=== PATIENT | female | born 1945 | race Caucasian/White ===

== ENCOUNTER 2016-04-22 10:21 | Inpatient (IN) | payer OTHER ==
[2016-04-22] VITALS (12 sets, daily range): BP systolic 140–161; BP diastolic 67–83
[~2016-04-22] VITALS: Ht 154.9 cm; Wt 57.2 kg
[~2016-04-22 10:21] MED LIST: CYCLOBENZAPRINE10 MG PO; DILAUDID4 MG; DILAUDID4 MG PO; EXALGO8 MG; EXALGO8 MG PO; EXCEDRIN MIGRA1 EAC3 PO; FIORICET,ESG1 TABLET PO; GABAPENTIN600 MG; HYDROMORPHONE HC4 MG PO; LISINOPRIL40 MG PO; LOW DOSE ASPIRI81 M2 PO; OMEPRAZOLE20 MG PO; PROMETHAZINE HC25 M1 PO; TOPROL XL100 MG PO; VENLAFAXINE H37.5 M1 PO; ZOLOFT100 MG PO
[2016-04-22 14:41] LABS: HEMATOCRIT 37.1 % (36.0-46.0); MCH 31.8 PG (29.0-34.0); MCHC 32.6 G/DL (30.0-36.0); MCV 97.6 FL (83-99); MEAN PLAT.VOLUME 9.3 uM^3 (9.5-12.4); PLATELET COUNT 204 K/uL (156-360); RBC DIS.WIDTH-CV 12.9 % (11.8-14.6); WHITE BLOOD COUNT 6.3 K/uL (4.1-10.2)
[2016-04-22 14:51] LABS: CHLORIDE 108 mEq/L (99-109); POTASSIUM 3.9 mEq/L (3.7-5.4); SODIUM 143 mEq/L (136-147)
[2016-04-22 14:52] LABS: GLUCOSE 93 mg/dL (70-99)
[2016-04-22 14:54] LABS: ANION GAP 8 MEQ/L (2-14)
[2016-04-22 14:56] LABS: GFR ESTIMATE (CALCULATED) > 59 mL/min/
[2016-04-22 14:57] LABS: UREA NITROGEN (BUN) 14 mg/dL (9-23)
[2016-04-22 15:02] LABS: TROP-I INTERPRETATION NEGATIVE; TROPONIN-I 0.01 ng/mL (0.0-0.30)
[2016-04-22] MEDS ORDERED: ASPIR 8181 M1 PO (16:40)
[2016-04-22 20:56] LABS: METH RESISTANT S AUREUS PCR NEGATIVE (NEGATIVE)
[2016-04-22 21:01] LABS: PROBE CHECK PASS; SPECIMEN PROCESSING CONTROL PASS
== END 2016-04-22 22:45 | disposition short-term general hospital (02) | DRG 287 ==
LOC: NUC 10:21 → EME 10:21 → OPR 10:21 → EDSTATUS 10:30 → NUC 10:30 → EME 16:51 → SDC 16:51 → 4WEST 19:18
PROVIDERS: Internal Medicine Interventional Cardiology
DX: I25.110 Atherosclerotic heart disease of native coronary artery with unstable angina pectoris (principal); I73.9 Peripheral vascular disease, unspecified; I10 Essential (primary) hypertension; E78.5 Hyperlipidemia, unspecified; K21.9 Gastro-esophageal reflux disease without esophagitis; F32.9 Major depressive disorder, single episode, unspecified; G43.909 Migraine, unspecified, not intractable, without status migrainosus; G89.29 Other chronic pain; Z88.0 Allergy status to penicillin; Z88.5 Allergy status to narcotic agent; Z23 Encounter for immunization
CPT/HCPCS: 71020; 78452; 80048; 84484; 85027; 85347; 87641; 93005; 93017; 99281; 99285; A9500; C1769; C1887; J1200; J1644; J2250; J3010; J7050

== ENCOUNTER 2016-05-11 10:52 | Inpatient (IN) | payer OTHER ==
[~2016-05-11] VITALS: Ht 154.9 cm; Wt 57.6 kg
[~2016-05-11 10:52] MED LIST changes: +ASPIR 8181 M1 PO
[2016-05-11 11:36] LABS: BASOPHIL COUNT 0.1 K/uL (0-0.1); EOSINOPHIL (%) 2.6 % (0-5); EOSINOPHIL COUNT 0.3 K/uL (0-0.3); HEMATOCRIT 26.7 % (36.0-46.0); IMMATURE GRANULOCYTE (%) 0.4 % (0.0-0.7); IMMATURE GRANULOCYTE COUNT 0.4 K/uL; LYMPHOCYTE COUNT 0.7 K/uL (1.0-2.8); MCH 30.9 PG (29.0-34.0); MCHC 31.1 G/DL (30.0-36.0); MCV 99.3 FL (83-99); MEAN PLAT.VOLUME 9.5 uM^3 (9.5-12.4); MONOCYTE (%) 9.4 % (3-12); NEUTROPHIL COUNT 8.8 K/uL (1.8-6.4); PLATELET COUNT 367 K/uL (156-360); RBC DIS.WIDTH-CV 14.9 % (11.8-14.6); RBC DIS.WIDTH-SD 49.8 % (39-53); RED BLOOD COUNT 2.69 M/uL (3.80-5.20); WHITE BLOOD COUNT 10.9 K/uL (4.1-10.2)
[2016-05-11 11:43] LABS: CHLORIDE 103 mEq/L (99-109); POTASSIUM 4.9 mEq/L (3.7-5.4); SODIUM 139 mEq/L (136-147)
[2016-05-11 11:45] LABS: GLUCOSE 115 mg/dL (70-99)
[2016-05-11 11:47] LABS: ANION GAP 10 MEQ/L (2-14); TOTAL BILIRUBIN 0.3 mg/dL (0.0-1.0)
[2016-05-11 11:52] LABS: D-DIMER ELISA > 4.00 mg/L FEU (< 0.57)
[2016-05-11 11:52] LABS: ALKALINE PHOSPHATASE 107 IU/L (3-129); GFR ESTIMATE (CALCULATED) > 59 mL/min/; UREA NITROGEN (BUN) 21 mg/dL (9-23)
[2016-05-11 11:53] LABS: TROP-I INTERPRETATION NEGATIVE; TROPONIN-I 0.05 ng/mL (0.0-0.30)
[2016-05-11 14:36] LABS: BASE EXCESS 4.6 mEq/L (-3 to +3); BICARBONATE 30.6 mEq/L (22-26); CARBOXY HGB 1.5 % (0-5); METHEMOGLOBIN 0.7 % (0-1.5); PCO2 53 mm Hg (35-45); PO2 52 mm Hg (80-100); pH 7.37 (7.35-7.45)
[2016-05-11 14:37] LABS: COMMENTS - BLOOD GASES +C; FI02 21 %; SITE LR +A; TOTAL RESP RATE 24 resp/min
[2016-05-11] MEDS ORDERED: ATORVASTATIN CA10 MG PO (15:50)
[2016-05-11] MEDS ORDERED: NITROSTAT0.4 MG SL (15:50)
[2016-05-11] MEDS ORDERED: PLAVIX75 MG PO (15:51)
[2016-05-11 16:38] LABS: INTER. NORMALIZED RATIO 1.3; PROTHROMBIN TIME 12.8 (9.2-11.2); PTT 29.9 (25-32)
[2016-05-11 17:30] VITALS: BP 113/84
== END 2016-05-11 16:15 | disposition short-term general hospital (02) | DRG 206 ==
LOC: EME 10:52 → EDOF 15:09
PROVIDERS: Emergency Medicine; Family Medicine
DX: J95.89 Other postprocedural complications and disorders of respiratory system, not elsewhere classified (principal); J90 Pleural effusion, not elsewhere classified; J98.19 Other pulmonary collapse; I25.10 Atherosclerotic heart disease of native coronary artery without angina pectoris; I48.91 Unspecified atrial fibrillation; G89.29 Other chronic pain; Z95.1 Presence of aortocoronary bypass graft; R09.02 Hypoxemia; K21.9 Gastro-esophageal reflux disease without esophagitis; I10 Essential (primary) hypertension; G43.909 Migraine, unspecified, not intractable, without status migrainosus; E78.00 Pure hypercholesterolemia, unspecified; E78.5 Hyperlipidemia, unspecified; F32.9 Major depressive disorder, single episode, unspecified; F41.9 Anxiety disorder, unspecified
CPT/HCPCS: 36600; 71010; 71275; 80053; 82803; 83880; 84484; 85025; 85379; 85610; 85730; 86850; 86900; 86901; 93005; 99281; 99285

== ENCOUNTER 2016-05-18 13:30 | Inpatient (IN) | payer OTHER ==
[~2016-05-18] VITALS: Ht 154.9 cm; Wt 60.5 kg
[~2016-05-18 13:30] MED LIST changes: +ATORVASTATIN CA10 MG PO; +NITROSTAT0.4 MG SL; +PLAVIX75 MG PO
[2016-05-18 15:16] LABS: HEMATOCRIT 31.8 % (36.0-46.0); MCHC 30.5 G/DL (30.0-36.0); MCV 98.5 FL (83-99); MEAN PLAT.VOLUME 9.4 uM^3 (9.5-12.4); PLATELET COUNT 368 K/uL (156-360); RBC DIS.WIDTH-CV 15.4 % (11.8-14.6); RBC DIS.WIDTH-SD 51.7 % (39-53); RED BLOOD COUNT 3.23 M/uL (3.80-5.20); WHITE BLOOD COUNT 8.8 K/uL (4.1-10.2)
[2016-05-18 15:24] LABS: CHLORIDE 101 mEq/L (99-109); POTASSIUM 4.5 mEq/L (3.7-5.4); SODIUM 140 mEq/L (136-147)
[2016-05-18 15:25] LABS: GLUCOSE 97 mg/dL (70-99)
[2016-05-18 15:27] LABS: ANION GAP 9 MEQ/L (2-14)
[2016-05-18 15:29] LABS: GFR ESTIMATE (CALCULATED) > 59 mL/min/
[2016-05-18 15:30] LABS: UREA NITROGEN (BUN) 9 mg/dL (9-23)
[2016-05-18 17:30] LABS: TROP-I INTERPRETATION NEGATIVE; TROPONIN-I 0.02 ng/mL (0.0-0.30)
[2016-05-18] MEDS ORDERED: LOPRESSOR50 MG PO (17:55)
[2016-05-18 22:45] VITALS: BP 137/70
[2016-05-18 22:53] VITALS: BP 137/70
[2016-05-19 01:58] LABS: INTER. NORMALIZED RATIO 1.3; PTT 29.5 (25-32)
[2016-05-19 03:00] VITALS: BP 132/63
[2016-05-19 07:55] VITALS: BP 131/60
[2016-05-19 08:33] LABS: HEMATOCRIT 29.4 % (36.0-46.0); MCH 28.8 PG (29.0-34.0); MCHC 29.9 G/DL (30.0-36.0); MCV 96.1 FL (83-99); MEAN PLAT.VOLUME 9.6 uM^3 (9.5-12.4); PLATELET COUNT 327 K/uL (156-360); RBC DIS.WIDTH-CV 15.7 % (11.8-14.6); RED BLOOD COUNT 3.06 M/uL (3.80-5.20); WHITE BLOOD COUNT 7.2 K/uL (4.1-10.2)
[2016-05-19 08:55] LABS: ANION GAP 9 MEQ/L (2-14); CHLORIDE 102 MEQ/L (99-109); GFR ESTIMATE (CALCULATED) > 59 mL/min/; GLUCOSE 102 mg/dL (70-99); POTASSIUM 4.3 MEQ/L (3.7-5.4); SAMPLE HEMOLYSIS CHECK 0; SAMPLE ICTERIC CHECK 0; SAMPLE LIPEMIA CHECK 0; SODIUM 140 MEQ/L (136-147); UREA NITROGEN (BUN) 10 mg/dL (9-23)
[2016-05-19 13:47] VITALS: BP 116/58
[2016-05-19 16:11] VITALS: BP 141/66
[2016-05-19 20:47] VITALS: BP 141/65
[2016-05-19 23:38] VITALS: BP 137/70
[2016-05-20 03:39] VITALS: BP 148/72
[2016-05-20 08:34] VITALS: BP 155/71
[2016-05-20 12:14] VITALS: BP 145/67
[2016-05-20 15:56] VITALS: BP 131/60
[2016-05-20 19:35] VITALS: BP 136/69
[2016-05-21 00:16] VITALS: BP 158/74
[2016-05-21 03:02] LABS: BASOPHIL COUNT 0.1 K/uL (0-0.1); EOSINOPHIL (%) 6.6 % (0-5); EOSINOPHIL COUNT 0.6 K/uL (0-0.3); HEMATOCRIT 30.7 % (36.0-46.0); IMMATURE GRANULOCYTE (%) 0.9 % (0.0-0.7); IMMATURE GRANULOCYTE COUNT 0.1 K/uL; INSTRUMENT ABS NEUTROPHIL CT 5.6 K/uL; LYMPHOCYTE COUNT 2.2 K/uL (1.0-2.8); MCH 29.5 PG (29.0-34.0); MCHC 30.3 G/DL (30.0-36.0); MCV 97.5 FL (83-99); MEAN PLAT.VOLUME 9.6 uM^3 (9.5-12.4); MONOCYTE (%) 7.5 % (3-12); MONOCYTE COUNT 0.7 K/uL (0-0.8); NEUTROPHIL (%) 60.5 % (45-76); NEUTROPHIL COUNT 5.6 K/uL (1.8-6.4); NRBC (%) 0.2 /100 WBC (0-0); PLATELET COUNT 340 K/uL (156-360); RBC DIS.WIDTH-CV 15.6 % (11.8-14.6); RBC DIS.WIDTH-SD 55.6 % (39-53); RED BLOOD COUNT 3.15 M/uL (3.80-5.20); WHITE BLOOD COUNT 9.2 K/uL (4.1-10.2)
[2016-05-21 03:13] VITALS: BP 183/80
[2016-05-21 03:19] LABS: CHLORIDE 107 mEq/L (99-109)
[2016-05-21 03:20] LABS: POTASSIUM 4.1 mEq/L (3.7-5.4); SODIUM 143 mEq/L (136-147)
[2016-05-21 03:21] LABS: GLUCOSE 105 mg/dL (70-99)
[2016-05-21 03:23] LABS: ANION GAP 10 MEQ/L (2-14)
[2016-05-21 03:25] LABS: GFR ESTIMATE (CALCULATED) > 59 mL/min/
[2016-05-21 03:26] LABS: UREA NITROGEN (BUN) 13 mg/dL (9-23)
[2016-05-21 07:45] VITALS: BP 160/67
[2016-05-21 12:47] VITALS: BP 137/61
[2016-05-21 16:09] VITALS: BP 146/64
== END 2016-05-21 18:00 | disposition home health service (06) | DRG 206 ==
LOC: EME 13:30 → EDOF 21:10 → 4EAST 21:10
PROVIDERS: Family Medicine Sports Medicine; Internal Medicine Cardiovascular Disease
DX: J95.89 Other postprocedural complications and disorders of respiratory system, not elsewhere classified (principal); J91.8 Pleural effusion in other conditions classified elsewhere; I48.91 Unspecified atrial fibrillation; J98.6 Disorders of diaphragm; D64.9 Anemia, unspecified; E78.5 Hyperlipidemia, unspecified; G43.909 Migraine, unspecified, not intractable, without status migrainosus; I10 Essential (primary) hypertension; Y83.2 Surgical operation with anastomosis, bypass or graft as the cause of abnormal reaction of the patient, or of later complication, without mention of misadventure at the time of the procedure; I25.10 Atherosclerotic heart disease of native coronary artery without angina pectoris; K21.9 Gastro-esophageal reflux disease without esophagitis; Z91.19 Patient's noncompliance with other medical treatment and regimen; Z95.5 Presence of coronary angioplasty implant and graft; F41.9 Anxiety disorder, unspecified
CPT/HCPCS: 71020; 76000; 80048; 84484; 85025; 85027; 85610; 85730; 93005; 99281; 99285

== ENCOUNTER → 2016-06-08 | Outpatient (CLI) | payer OTHER ==
[~2016-06-08] MED LIST changes: +LOPRESSOR50 MG PO
== END | disposition home or self-care (01) ==
LOC: EDSTATUS 06-07 09:00 → RAD 06-07 09:00
DX: J90 Pleural effusion, not elsewhere classified (principal); Z53.09 Procedure and treatment not carried out because of other contraindication
CPT/HCPCS: 71250

== ENCOUNTER 2016-11-10 20:05 | Inpatient (IN) | payer OTHER ==
[~2016-11-10] VITALS: Ht 154.9 cm; Wt 52.6 kg
[2016-11-10 20:59] LABS: EOSINOPHIL (%) 0 % (0-5); HEMATOCRIT 40.4 % (36.0-46.0); IMMATURE GRANULOCYTE (%) 0.6 % (0.0-0.7); IMMATURE GRANULOCYTE COUNT 0.1 K/uL; INSTRUMENT ABS NEUTROPHIL CT 16.7 K/uL; LYMPHOCYTE COUNT 1.4 K/uL (1.0-2.8); MCH 29.6 PG (29.0-34.0); MCHC 32.4 G/DL (30.0-36.0); MCV 91.4 FL (83-99); MEAN PLAT.VOLUME 10.1 uM^3 (9.5-12.4); MONOCYTE (%) 3.5 % (3-12); MONOCYTE COUNT 0.7 K/uL (0-0.8); NEUTROPHIL (%) 88.2 % (45-76); NEUTROPHIL COUNT 16.7 K/uL (1.8-6.4); PLATELET COUNT 310 K/uL (156-360); RBC DIS.WIDTH-SD 53.6 % (39-53); RED BLOOD COUNT 4.42 M/uL (3.80-5.20)
[2016-11-10 21:06] LABS: CHLORIDE 105 mEq/L (99-109); POTASSIUM 3.1 mEq/L (3.7-5.4); SODIUM 144 mEq/L (136-147)
[2016-11-10 21:09] LABS: GLUCOSE 265 mg/dL (70-99)
[2016-11-10 21:10] LABS: ANION GAP 20 MEQ/L (2-14); TOTAL BILIRUBIN 1.1 mg/dL (0.0-1.0)
[2016-11-10 21:12] LABS: ALKALINE PHOSPHATASE 117 IU/L (3-129); GFR ESTIMATE (CALCULATED) > 59 mL/min/
[2016-11-10 21:13] LABS: UREA NITROGEN (BUN) 14 mg/dL (9-23)
[2016-11-10 21:16] LABS: LIPASE 10 U/L (1.0-51.0)
[2016-11-10 21:49] LABS: ADD MIUA? YES; BILIRUBIN NEGATIVE; BLOOD NEGATIVE; COLOR YELLOW ((YELLOW)); GLUCOSE (STRIP) >=500; KETONES 80; LEUKOCYTES LARGE; NITRITE NEGATIVE; PROTEIN (STRIP) NEGATIVE; SPECIFIC GRAVITY 1.012 (1.000-1.030); UROBILINOGEN 0.2 MG/DL (0.2-1.0)
[2016-11-10 21:53] LABS: BACTERIA RARE /HPF; EPITHELIAL CELLS RARE /HPF; HYALINE CASTS 0-5 /LPF; MUCUS TRACE /LPF; RED BLOOD CELLS 0-5 /HPF (0-5); UCUL ADDED? YES; WHITE BLOOD CELLS 15-20 /HPF (0-5)
[2016-11-10] MEDS ORDERED: MORPHINE SULFAT15 M1 PO (23:27)
[2016-11-11 03:08] VITALS: BP 174/84
[2016-11-11 05:48] LABS: BASOPHIL COUNT 0.1 K/uL (0-0.1); EOSINOPHIL (%) 0 % (0-5); HEMATOCRIT 47.8 % (36.0-46.0); IMMATURE GRANULOCYTE (%) 0.9 % (0.0-0.7); IMMATURE GRANULOCYTE COUNT 0.2 K/uL; INSTRUMENT ABS NEUTROPHIL CT 20.6 K/uL; MCHC 31.2 G/DL (30.0-36.0); MEAN PLAT.VOLUME 9.5 uM^3 (9.5-12.4); MONOCYTE (%) 5.2 % (3-12); MONOCYTE COUNT 1.3 K/uL (0-0.8); NEUTROPHIL (%) 85.6 % (45-76); NEUTROPHIL COUNT 20.6 K/uL (1.8-6.4); PLATELET COUNT 367 K/uL (156-360); RBC DIS.WIDTH-CV 16.5 % (11.8-14.6); RBC DIS.WIDTH-SD 57.1 % (39-53); RED BLOOD COUNT 5.14 M/uL (3.80-5.20)
[2016-11-11 06:06] LABS: ANION GAP 15 MEQ/L (2-14); CHLORIDE 108 MEQ/L (99-109); SAMPLE HEMOLYSIS CHECK 0; SAMPLE ICTERIC CHECK 0; SAMPLE LIPEMIA CHECK 0; SODIUM 142 MEQ/L (136-147)
[2016-11-11 06:08] LABS: POTASSIUM 4.1 MEQ/L (3.7-5.4)
[2016-11-11 06:12] LABS: GFR ESTIMATE (CALCULATED) > 59 mL/min/; GLUCOSE 215 mg/dL (70-99); UREA NITROGEN (BUN) 14 mg/dL (9-23)
[2016-11-11 06:34] LABS: POINT-OF-CARE METER ID UU14117124
[2016-11-11 07:32] VITALS: BP 136/70
[2016-11-11 11:02] VITALS: BP 128/60
[2016-11-11 11:38] LABS: POINT-OF-CARE METER ID UU14188577
[2016-11-11 19:20] VITALS: BP 98/49
[2016-11-11 23:00] VITALS: BP 99/52
[2016-11-12 03:15] VITALS: BP 116/50
[2016-11-12 07:34] LABS: EOSINOPHIL (%) 0 % (0-5); IMMATURE GRANULOCYTE (%) 0.6 % (0.0-0.7); IMMATURE GRANULOCYTE COUNT 0.1 K/uL; INSTRUMENT ABS NEUTROPHIL CT 10.5 K/uL; LYMPHOCYTE COUNT 1.4 K/uL (1.0-2.8); MCH 30.5 PG (29.0-34.0); MCHC 31.3 G/DL (30.0-36.0); MONOCYTE (%) 8.8 % (3-12); MONOCYTE COUNT 1.2 K/uL (0-0.8); NEUTROPHIL COUNT 10.5 K/uL (1.8-6.4); RBC DIS.WIDTH-CV 17.7 % (11.8-14.6); RBC DIS.WIDTH-SD 63.7 % (39-53); WHITE BLOOD COUNT 13.2 K/uL (4.1-10.2)
[2016-11-12 07:38] LABS: MCV 97.5 FL (83-99); RED BLOOD COUNT 3.18 M/uL (3.80-5.20)
[2016-11-12 07:45] LABS: ALKALINE PHOSPHATASE 57 IU/L (3-129); ANION GAP 9 MEQ/L (2-14); CHLORIDE 113 MEQ/L (99-109); GFR ESTIMATE (CALCULATED) 26 mL/min/; GLUCOSE 111 mg/dL (70-99); POTASSIUM 4.2 MEQ/L (3.7-5.4); SAMPLE HEMOLYSIS CHECK 0; SAMPLE ICTERIC CHECK 0; SAMPLE LIPEMIA CHECK 0; SODIUM 145 MEQ/L (136-147); TOTAL BILIRUBIN 0.2 MG/DL (0.0-1.0); UREA NITROGEN (BUN) 36 mg/dL (9-23)
[2016-11-12 07:48] LABS: POINT-OF-CARE METER ID UU13113698
[2016-11-12 07:59] LABS: MEAN PLAT.VOLUME 10.2 uM^3 (9.5-12.4); PLAT.SUFFICIENCY ADEQUATE
[2016-11-12 08:01] LABS: PLATELET COUNT 198 K/uL (156-360)
[2016-11-12 08:18] VITALS: BP 115/56
[2016-11-12 11:23] LABS: POINT-OF-CARE METER ID UU13113781
[2016-11-12 11:31] VITALS: BP 114/56
[2016-11-12 16:29] LABS: POINT-OF-CARE METER ID UU13113698
[2016-11-12 17:50] VITALS: BP 117/56
[2016-11-12 19:00] VITALS: BP 130/60
[2016-11-12 23:30] VITALS: BP 139/60
[2016-11-13] VITALS (12 sets, daily range): BP systolic 135–164; BP diastolic 63–77
[2016-11-13 06:32] LABS: EOSINOPHIL (%) 0 % (0-5); HEMATOCRIT 22.4 % (36.0-46.0); IMMATURE GRANULOCYTE (%) 0.7 % (0.0-0.7); IMMATURE GRANULOCYTE COUNT 0.1 K/uL; LYMPHOCYTE COUNT 0.8 K/uL (1.0-2.8); MCHC 31.7 G/DL (30.0-36.0); MCV 97.8 FL (83-99); MEAN PLAT.VOLUME 10.3 uM^3 (9.5-12.4); MONOCYTE (%) 5.1 % (3-12); MONOCYTE COUNT 0.4 K/uL (0-0.8); NEUTROPHIL (%) 84.6 % (45-76); PLATELET COUNT 139 K/uL (156-360); RBC DIS.WIDTH-CV 17.9 % (11.8-14.6); WHITE BLOOD COUNT 8.3 K/uL (4.1-10.2)
[2016-11-13 06:33] LABS: RED BLOOD COUNT 2.29 M/uL (3.80-5.20)
[2016-11-13 06:52] LABS: TROP-I INTERPRETATION NEGATIVE; TROPONIN-I 0.12 ng/mL (0.0-0.30)
[2016-11-13 07:20] LABS: ANION GAP 10 MEQ/L (2-14); CHLORIDE 118 MEQ/L (99-109); GFR ESTIMATE (CALCULATED) > 59 mL/min/; GLUCOSE 85 mg/dL (70-99); POTASSIUM 3.5 MEQ/L (3.7-5.4); SAMPLE HEMOLYSIS CHECK 0; SAMPLE ICTERIC CHECK 0; SAMPLE LIPEMIA CHECK 0; SODIUM 149 MEQ/L (136-147); UREA NITROGEN (BUN) 24 mg/dL (9-23)
[2016-11-14] VITALS (45 sets, daily range): BP systolic 97–164; BP diastolic 54–107
[2016-11-14 06:20] LABS: ANION GAP 12 MEQ/L (2-14); CHLORIDE 111 MEQ/L (99-109); GFR ESTIMATE (CALCULATED) > 59 mL/min/; GLUCOSE 69 mg/dL (70-99); POTASSIUM 3.3 MEQ/L (3.7-5.4); SAMPLE HEMOLYSIS CHECK 0; SAMPLE ICTERIC CHECK 0; SAMPLE LIPEMIA CHECK 0; SODIUM 148 MEQ/L (136-147); UREA NITROGEN (BUN) 17 mg/dL (9-23)
[2016-11-14 06:28] LABS: EOSINOPHIL (%) 0.5 % (0-5); EOSINOPHIL COUNT 0.1 K/uL (0-0.3); HEMATOCRIT 32.8 % (36.0-46.0); IMMATURE GRANULOCYTE (%) 0.5 % (0.0-0.7); IMMATURE GRANULOCYTE COUNT 0.1 K/uL; INSTRUMENT ABS NEUTROPHIL CT 9.1 K/uL; LYMPHOCYTE COUNT 1.2 K/uL (1.0-2.8); MCH 29.2 PG (29.0-34.0); MEAN PLAT.VOLUME 10.1 uM^3 (9.5-12.4); MONOCYTE (%) 4.7 % (3-12); MONOCYTE COUNT 0.5 K/uL (0-0.8); NEUTROPHIL (%) 82.8 % (45-76); NEUTROPHIL COUNT 9.1 K/uL (1.8-6.4); PLATELET COUNT 179 K/uL (156-360); RBC DIS.WIDTH-CV 18.6 % (11.8-14.6); RBC DIS.WIDTH-SD 61.6 % (39-53)
[2016-11-14 06:33] LABS: MCV 91.4 FL (83-99); RED BLOOD COUNT 3.59 M/uL (3.80-5.20)
[2016-11-15] VITALS (9 sets, daily range): BP systolic 119–175; BP diastolic 63–79
[2016-11-16] VITALS (7 sets, daily range): BP systolic 124–172; BP diastolic 60–80
[2016-11-16 05:53] LABS: EOSINOPHIL (%) 3.9 % (0-5); EOSINOPHIL COUNT 0.4 K/uL (0-0.3); HEMATOCRIT 32.5 % (36.0-46.0); IMMATURE GRANULOCYTE (%) 0.6 % (0.0-0.7); IMMATURE GRANULOCYTE COUNT 0.1 K/uL; INSTRUMENT ABS NEUTROPHIL CT 6.7 K/uL; LYMPHOCYTE COUNT 1.1 K/uL (1.0-2.8); MCH 30.4 PG (29.0-34.0); MCHC 34.5 G/DL (30.0-36.0); MCV 88.1 FL (83-99); MONOCYTE (%) 8.3 % (3-12); MONOCYTE COUNT 0.7 K/uL (0-0.8); NEUTROPHIL (%) 74.7 % (45-76); NEUTROPHIL COUNT 6.7 K/uL (1.8-6.4); PLATELET COUNT 223 K/uL (156-360); RBC DIS.WIDTH-CV 17.8 % (11.8-14.6); RBC DIS.WIDTH-SD 57.3 % (39-53); RED BLOOD COUNT 3.69 M/uL (3.80-5.20); WHITE BLOOD COUNT 8.9 K/uL (4.1-10.2)
[2016-11-16 06:29] LABS: ANION GAP 7 MEQ/L (2-14); CHLORIDE 108 MEQ/L (99-109); GFR ESTIMATE (CALCULATED) > 59 mL/min/; POTASSIUM 2.7 MEQ/L (3.7-5.4); SAMPLE HEMOLYSIS CHECK 0; SAMPLE ICTERIC CHECK 0; SAMPLE LIPEMIA CHECK 0; SODIUM 146 MEQ/L (136-147); UREA NITROGEN (BUN) 14 mg/dL (9-23)
[2016-11-16 06:40] LABS: GLUCOSE 122 mg/dL (70-99)
[2016-11-17 03:23] VITALS: BP 160/74
[2016-11-17 06:35] LABS: ANION GAP 8 MEQ/L (2-14); CHLORIDE 105 MEQ/L (99-109); GFR ESTIMATE (CALCULATED) > 59 mL/min/; GLUCOSE 121 mg/dL (70-99); POTASSIUM 3.1 MEQ/L (3.7-5.4); SAMPLE HEMOLYSIS CHECK 1; SAMPLE ICTERIC CHECK 0; SAMPLE LIPEMIA CHECK 0; SODIUM 144 MEQ/L (136-147); UREA NITROGEN (BUN) 8 mg/dL (9-23)
[2016-11-17 07:27] VITALS: BP 132/68
[2016-11-17 11:25] VITALS: BP 99/56
[2016-11-17 14:40] LABS: HEMATOCRIT 28.3 % (36.0-46.0); MCH 29.5 PG (29.0-34.0); MCHC 33.9 G/DL (30.0-36.0); MCV 87.1 FL (83-99); MEAN PLAT.VOLUME 9.7 uM^3 (9.5-12.4); PLATELET COUNT 456 K/uL (156-360); RBC DIS.WIDTH-CV 17.5 % (11.8-14.6); RBC DIS.WIDTH-SD 55.5 % (39-53); RED BLOOD COUNT 3.25 M/uL (3.80-5.20); WHITE BLOOD COUNT 25.2 K/uL (4.1-10.2)
[2016-11-17 17:00] LABS: POINT-OF-CARE METER ID UU14208750
[2016-11-17 17:06] VITALS: BP 111/77
[2016-11-17 18:07] LABS: POINT-OF-CARE METER ID UU14208750
[2016-11-17 20:17] LABS: BASE EXCESS 1.6 mEq/L (-3 to +3); BICARBONATE 24.6 mEq/L (22-26); COMMENTS - BLOOD GASES A+C+; PCO2 33 mm Hg (35-45); PO2 165 mm Hg (80-100); SITE RR; pH 7.48 (7.35-7.45)
[2016-11-17 20:18] LABS: DEVICE 840; FI02 60 %; MECHANICAL RATE 16 resp/min; MODE A/C; TIDAL VOLUME 400 ML; TOTAL RESP RATE 26 resp/min
[2016-11-17 22:49] VITALS: BP 106/53
[2016-11-18] VITALS (16 sets, daily range): BP systolic 86–134; BP diastolic 42–61
[2016-11-18 06:45] LABS: HEMATOCRIT 14.4 % (36.0-46.0); MCH 31.3 PG (29.0-34.0); MCHC 36.1 G/DL (30.0-36.0); MCV 86.7 FL (83-99); RBC DIS.WIDTH-CV 17.7 % (11.8-14.6); WHITE BLOOD COUNT 22.2 K/uL (4.1-10.2)
[2016-11-18 06:46] LABS: RED BLOOD COUNT 1.66 M/uL (3.80-5.20)
[2016-11-18 06:50] LABS: EOSINOPHIL (%) 0 % (0-5); IMMATURE GRANULOCYTE (%) 1.3 % (0.0-0.7); IMMATURE GRANULOCYTE COUNT 0.3 K/uL; INSTRUMENT ABS NEUTROPHIL CT 18.4 K/uL; LYMPHOCYTE COUNT 1.7 K/uL (1.0-2.8); MEAN PLAT.VOLUME 10.5 uM^3 (9.5-12.4); MONOCYTE COUNT 1.8 K/uL (0-0.8); NEUTROPHIL (%) 82.9 % (45-76); NEUTROPHIL COUNT 18.4 K/uL (1.8-6.4); PLAT.SUFFICIENCY ADEQUATE
[2016-11-18 06:51] LABS: PLATELET COUNT 312 K/uL (156-360)
[2016-11-18 07:56] LABS: ANION GAP 5 MEQ/L (2-14); CHLORIDE 108 MEQ/L (99-109); GFR ESTIMATE (CALCULATED) > 59 mL/min/; GLUCOSE 126 mg/dL (70-99); SAMPLE HEMOLYSIS CHECK 0; SAMPLE ICTERIC CHECK 0; SAMPLE LIPEMIA CHECK 0; SODIUM 144 MEQ/L (136-147)
[2016-11-18 07:58] LABS: POTASSIUM 4.1 MEQ/L (3.7-5.4); UREA NITROGEN (BUN) 23 mg/dL (9-23)
[2016-11-18 23:56] LABS: HEMATOCRIT 29.7 % (36.0-46.0); MCV 85.6 FL (83-99)
[2016-11-19] VITALS (14 sets, daily range): BP systolic 90–131; BP diastolic 50–71
[2016-11-19 06:23] LABS: ANION GAP 16 MEQ/L (2-14); CHLORIDE 110 MEQ/L (99-109); SAMPLE HEMOLYSIS CHECK 0; SAMPLE ICTERIC CHECK 0; SAMPLE LIPEMIA CHECK 0; SODIUM 148 MEQ/L (136-147)
[2016-11-19 06:25] LABS: GFR ESTIMATE (CALCULATED) 25 mL/min/; GLUCOSE 87 mg/dL (70-99); UREA NITROGEN (BUN) 40 mg/dL (9-23)
[2016-11-19 06:26] LABS: POTASSIUM 5.7 MEQ/L (3.7-5.4)
[2016-11-19 06:30] LABS: BASOPHIL COUNT 0.1 K/uL (0-0.1); EOSINOPHIL (%) 0 % (0-5); HEMATOCRIT 27.9 % (36.0-46.0); INSTRUMENT ABS NEUTROPHIL CT 26.1 K/uL; LYMPHOCYTE COUNT 3.1 K/uL (1.0-2.8); MCH 30.7 PG (29.0-34.0); MCHC 35.1 G/DL (30.0-36.0); MCV 87.5 FL (83-99); MEAN PLAT.VOLUME 10.8 uM^3 (9.5-12.4); NEUTROPHIL (%) 78.6 % (45-76); NEUTROPHIL COUNT 26.1 K/uL (1.8-6.4); NRBC (%) 0.4 /100 WBC (0-0); RBC DIS.WIDTH-CV 16.7 % (11.8-14.6); RBC DIS.WIDTH-SD 51.6 % (39-53)
[2016-11-19 06:31] LABS: PLATELET COUNT 408 K/uL (156-360); RED BLOOD COUNT 3.19 M/uL (3.80-5.20); WHITE BLOOD COUNT 33.2 K/uL (4.1-10.2)
[2016-11-19 12:50] LABS: COLOR RED ((YELLOW))
[2016-11-19 12:53] LABS: ADD MIUA? YES; BILIRUBIN NEGATIVE; BLOOD LARGE; GLUCOSE (STRIP) NEGATIVE; KETONES NEGATIVE; LEUKOCYTES SMALL; NITRITE NEGATIVE; PROTEIN (STRIP) >=300; SPECIFIC GRAVITY 1.015 (1.000-1.030); UROBILINOGEN 0.2 MG/DL (0.2-1.0)
[2016-11-19 12:54] LABS: RED BLOOD CELLS TNTC /HPF (0-5)
[2016-11-19 15:28] LABS: PROTHROMBIN TIME 161.5 SEC (10.2-12.9)
[2016-11-19 15:30] LABS: INTER. NORMALIZED RATIO 13.2
[2016-11-19 15:30] LABS: EOSINOPHIL (%) 0 % (0-5); HEMATOCRIT 21.3 % (36.0-46.0); IMMATURE GRANULOCYTE (%) 2.5 % (0.0-0.7); IMMATURE GRANULOCYTE COUNT 0.7 K/uL; INSTRUMENT ABS NEUTROPHIL CT 23.3 K/uL; LYMPHOCYTE COUNT 3.3 K/uL (1.0-2.8); MCH 30.5 PG (29.0-34.0); MCHC 35.2 G/DL (30.0-36.0); MCV 86.6 FL (83-99); MEAN PLAT.VOLUME 10.4 uM^3 (9.5-12.4); MONOCYTE (%) 6.6 % (3-12); MONOCYTE COUNT 1.9 K/uL (0-0.8); NEUTROPHIL (%) 79.7 % (45-76); NEUTROPHIL COUNT 23.3 K/uL (1.8-6.4); NRBC (%) 0.3 /100 WBC (0-0); PLATELET COUNT 373 K/uL (156-360); RBC DIS.WIDTH-CV 17.2 % (11.8-14.6); RBC DIS.WIDTH-SD 52.9 % (39-53); WHITE BLOOD COUNT 29.3 K/uL (4.1-10.2)
[2016-11-19 15:33] LABS: RED BLOOD COUNT 2.46 M/uL (3.80-5.20)
[2016-11-19 15:40] LABS: ANION GAP 9 MEQ/L (2-14); CHLORIDE 114 MEQ/L (99-109); GFR ESTIMATE (CALCULATED) 19 mL/min/; POTASSIUM 5.2 MEQ/L (3.7-5.4); SAMPLE HEMOLYSIS CHECK 0; SAMPLE ICTERIC CHECK 0; SAMPLE LIPEMIA CHECK 0; SODIUM 146 MEQ/L (136-147); UREA NITROGEN (BUN) 51 mg/dL (9-23)
[2016-11-19 15:43] LABS: GLUCOSE 162 mg/dL (70-99)
[2016-11-20] VITALS (12 sets, daily range): BP systolic 113–135; BP diastolic 54–87
[2016-11-20 04:08] LABS: EOSINOPHIL (%) 0.3 % (0-5); IMMATURE GRANULOCYTE (%) 1.7 % (0.0-0.7); IMMATURE GRANULOCYTE COUNT 0.3 K/uL; INSTRUMENT ABS NEUTROPHIL CT 12.2 K/uL; LYMPHOCYTE COUNT 1.3 K/uL (1.0-2.8); MCH 29.8 PG (29.0-34.0); MCV 87.7 FL (83-99); MONOCYTE (%) 4.5 % (3-12); MONOCYTE COUNT 0.7 K/uL (0-0.8); NEUTROPHIL (%) 84.5 % (45-76); NEUTROPHIL COUNT 12.2 K/uL (1.8-6.4); NRBC (%) 0.2 /100 WBC (0-0); RBC DIS.WIDTH-CV 17.6 % (11.8-14.6); RBC DIS.WIDTH-SD 55.1 % (39-53); WHITE BLOOD COUNT 14.4 K/uL (4.1-10.2)
[2016-11-20 04:10] LABS: CHLORIDE 113 mEq/L (99-109); POTASSIUM 4.6 mEq/L (3.7-5.4); RED BLOOD COUNT 1.71 M/uL (3.80-5.20); SODIUM 143 mEq/L (136-147)
[2016-11-20 04:13] LABS: ANION GAP 7 MEQ/L (2-14)
[2016-11-20 04:16] LABS: GFR ESTIMATE (CALCULATED) 23 mL/min/
[2016-11-20 04:17] LABS: UREA NITROGEN (BUN) 55 mg/dL (9-23)
[2016-11-20 04:19] LABS: GLUCOSE 105 mg/dL (70-99)
[2016-11-20 04:59] LABS: INTER. NORMALIZED RATIO 1.8; PROTHROMBIN TIME 19.7 SEC (10.2-12.9); PTT 22.2 SEC (25-37)
[2016-11-20 05:21] LABS: MEAN PLAT.VOLUME 9.9 uM^3 (9.5-12.4); PLAT.SUFFICIENCY ADEQUATE
[2016-11-20 05:58] LABS: PLATELET COUNT 202 K/uL (156-360)
[2016-11-20 10:46] LABS: ALKALINE PHOSPHATASE 74 IU/L (3-129); ANION GAP 7 MEQ/L (2-14); CHLORIDE 113 MEQ/L (99-109); GFR ESTIMATE (CALCULATED) 31 mL/min/; GLUCOSE 140 mg/dL (70-99); POTASSIUM 4.6 MEQ/L (3.7-5.4); SAMPLE HEMOLYSIS CHECK 0; SAMPLE ICTERIC CHECK 0; SAMPLE LIPEMIA CHECK 0; SODIUM 145 MEQ/L (136-147); TOTAL BILIRUBIN 0.8 MG/DL (0.0-1.0); UREA NITROGEN (BUN) 55 mg/dL (9-23)
[2016-11-20 16:25] LABS: HEMATOCRIT 26.6 % (36.0-46.0); MCH 31.8 PG (29.0-34.0); MCHC 36.1 G/DL (30.0-36.0); MCV 88.1 FL (83-99); NRBC (%) 0.3 /100 WBC (0-0); RBC DIS.WIDTH-CV 15.9 % (11.8-14.6); RBC DIS.WIDTH-SD 49.7 % (39-53); WHITE BLOOD COUNT 14.7 K/uL (4.1-10.2)
[2016-11-20 16:26] LABS: RED BLOOD COUNT 3.02 M/uL (3.80-5.20)
[2016-11-20 17:00] LABS: MEAN PLAT.VOLUME 11.5 uM^3 (9.5-12.4)
[2016-11-20 17:01] LABS: PLATELET COUNT 84 K/uL (156-360)
[2016-11-21] VITALS (7 sets, daily range): BP systolic 120–138; BP diastolic 58–67
[2016-11-21 06:01] LABS: INTER. NORMALIZED RATIO 1.4; PROTHROMBIN TIME 15.8 SEC (10.2-12.9)
[2016-11-21 06:29] LABS: ALKALINE PHOSPHATASE 69 IU/L (3-129); ANION GAP 6 MEQ/L (2-14); CHLORIDE 112 MEQ/L (99-109); GFR ESTIMATE (CALCULATED) > 59 mL/min/; POTASSIUM 4.4 MEQ/L (3.7-5.4); SAMPLE HEMOLYSIS CHECK 0; SAMPLE ICTERIC CHECK 0; SAMPLE LIPEMIA CHECK 0; SODIUM 144 MEQ/L (136-147); TOTAL BILIRUBIN 0.7 MG/DL (0.0-1.0); UREA NITROGEN (BUN) 42 mg/dL (9-23)
[2016-11-21 06:31] LABS: GLUCOSE 104 mg/dL (70-99)
[2016-11-21 06:49] LABS: MCH 31.4 PG (29.0-34.0); MCHC 35.2 G/DL (30.0-36.0); MCV 89.3 FL (83-99); MEAN PLAT.VOLUME 9.7 uM^3 (9.5-12.4); NRBC (%) 0.2 /100 WBC (0-0); RBC DIS.WIDTH-SD 51.8 % (39-53); WHITE BLOOD COUNT 12.6 K/uL (4.1-10.2)
[2016-11-21 06:52] LABS: PLATELET COUNT 174 K/uL (156-360)
[2016-11-21 12:04] LABS: POC NON-PRINT COM 1 ND
[2016-11-21 12:07] LABS: POC NON-PRINT COM 1 ND
[2016-11-21 12:13] LABS: HBSG INDEX 0.16
[2016-11-21 12:15] LABS: ANTI-HEPATITIS A VIRUS (IGM) Nonreactive; ANTI-HEPATITIS B CORE (IGM) Nonreactive; HAV INDEX 0.22; HBC IgM INDEX 0.07
[2016-11-22 04:05] VITALS: BP 132/63
[2016-11-22 06:32] LABS: EOSINOPHIL (%) 1.8 % (0-5); EOSINOPHIL COUNT 0.2 K/uL (0-0.3); HEMATOCRIT 22.6 % (36.0-46.0); IMMATURE GRANULOCYTE (%) 1.8 % (0.0-0.7); IMMATURE GRANULOCYTE COUNT 0.2 K/uL; INSTRUMENT ABS NEUTROPHIL CT 9.8 K/uL; LYMPHOCYTE COUNT 0.9 K/uL (1.0-2.8); MCH 29.9 PG (29.0-34.0); MCHC 33.2 G/DL (30.0-36.0); MEAN PLAT.VOLUME 9.8 uM^3 (9.5-12.4); MONOCYTE (%) 6.8 % (3-12); MONOCYTE COUNT 0.8 K/uL (0-0.8); NEUTROPHIL (%) 82.4 % (45-76); NEUTROPHIL COUNT 9.8 K/uL (1.8-6.4); PLATELET COUNT 166 K/uL (156-360); RBC DIS.WIDTH-CV 15.9 % (11.8-14.6); RBC DIS.WIDTH-SD 51.8 % (39-53); RED BLOOD COUNT 2.51 M/uL (3.80-5.20); WHITE BLOOD COUNT 11.9 K/uL (4.1-10.2)
[2016-11-22 06:46] LABS: CHLORIDE 111 mEq/L (99-109); POTASSIUM 4.6 mEq/L (3.7-5.4); SODIUM 140 mEq/L (136-147)
[2016-11-22 06:48] LABS: GLUCOSE 115 mg/dL (70-99)
[2016-11-22 06:49] LABS: ANION GAP 6 MEQ/L (2-14)
[2016-11-22 06:52] LABS: GFR ESTIMATE (CALCULATED) > 59 mL/min/
[2016-11-22 06:53] LABS: UREA NITROGEN (BUN) 25 mg/dL (9-23)
[2016-11-22 07:30] VITALS: BP 120/59
[2016-11-22 14:00] VITALS: BP 130/69
[2016-11-22 16:25] VITALS: BP 150/80
[2016-11-22 20:25] VITALS: BP 128/63
[2016-11-23 00:28] VITALS: BP 147/67
[2016-11-23 03:45] VITALS: BP 131/70
[2016-11-23 06:57] LABS: EOSINOPHIL (%) 1.2 % (0-5); EOSINOPHIL COUNT 0.2 K/uL (0-0.3); HEMATOCRIT 25.7 % (36.0-46.0); IMMATURE GRANULOCYTE (%) 2.1 % (0.0-0.7); IMMATURE GRANULOCYTE COUNT 0.3 K/uL; INSTRUMENT ABS NEUTROPHIL CT 11.3 K/uL; LYMPHOCYTE COUNT 0.8 K/uL (1.0-2.8); MCHC 32.3 G/DL (30.0-36.0); MCV 92.8 FL (83-99); MEAN PLAT.VOLUME 9.6 uM^3 (9.5-12.4); MONOCYTE (%) 5.5 % (3-12); MONOCYTE COUNT 0.7 K/uL (0-0.8); NEUTROPHIL (%) 84.9 % (45-76); NEUTROPHIL COUNT 11.3 K/uL (1.8-6.4); PLATELET COUNT 189 K/uL (156-360); RBC DIS.WIDTH-CV 15.9 % (11.8-14.6); RBC DIS.WIDTH-SD 52.9 % (39-53); RED BLOOD COUNT 2.77 M/uL (3.80-5.20); WHITE BLOOD COUNT 13.3 K/uL (4.1-10.2)
[2016-11-23 07:22] LABS: ALKALINE PHOSPHATASE 69 IU/L (3-129); ANION GAP 6 MEQ/L (2-14); CHLORIDE 107 MEQ/L (99-109); GFR ESTIMATE (CALCULATED) > 59 mL/min/; GLUCOSE 106 mg/dL (70-99); POTASSIUM 4.3 MEQ/L (3.7-5.4); SAMPLE HEMOLYSIS CHECK 0; SAMPLE ICTERIC CHECK 0; SAMPLE LIPEMIA CHECK 0; SODIUM 140 MEQ/L (136-147); UREA NITROGEN (BUN) 15 mg/dL (9-23)
[2016-11-23 07:23] LABS: TOTAL BILIRUBIN 0.9 MG/DL (0.0-1.0)
[2016-11-23 07:35] VITALS: BP 152/71
[2016-11-23 11:30] VITALS: BP 133/65
[2016-11-23 15:09] VITALS: BP 140/63
[2016-11-23 16:40] LABS: ADD MIUA? YES; BILIRUBIN NEGATIVE; BLOOD LARGE; COLOR YELLOW ((YELLOW)); GLUCOSE (STRIP) 50; KETONES NEGATIVE; LEUKOCYTES SMALL; NITRITE NEGATIVE; PROTEIN (STRIP) 30; SPECIFIC GRAVITY 1.017 (1.000-1.030); UROBILINOGEN 0.2 MG/DL (0.2-1.0)
[2016-11-23 17:36] LABS: BACTERIA 1+ /HPF; BUDDING YEAST 1+; EPITHELIAL CELLS 2+ /HPF; MUCUS TRACE /LPF; RED BLOOD CELLS TNTC /HPF (0-5); UCUL ADDED? YES
[2016-11-24 00:37] VITALS: BP 143/70
[2016-11-24 07:07] LABS: EOSINOPHIL (%) 2.9 % (0-5); EOSINOPHIL COUNT 0.3 K/uL (0-0.3); HEMATOCRIT 22.9 % (36.0-46.0); IMMATURE GRANULOCYTE (%) 1.2 % (0.0-0.7); IMMATURE GRANULOCYTE COUNT 0.1 K/uL; INSTRUMENT ABS NEUTROPHIL CT 9.3 K/uL; LYMPHOCYTE COUNT 0.9 K/uL (1.0-2.8); MCH 31.9 PG (29.0-34.0); MCHC 34.5 G/DL (30.0-36.0); MCV 92.3 FL (83-99); MONOCYTE (%) 7.8 % (3-12); MONOCYTE COUNT 0.9 K/uL (0-0.8); NEUTROPHIL (%) 80.6 % (45-76); NEUTROPHIL COUNT 9.3 K/uL (1.8-6.4); PLATELET COUNT 195 K/uL (156-360); RBC DIS.WIDTH-SD 51.5 % (39-53); RED BLOOD COUNT 2.48 M/uL (3.80-5.20); WHITE BLOOD COUNT 11.5 K/uL (4.1-10.2)
[2016-11-24 07:29] LABS: ANION GAP 6 MEQ/L (2-14); CHLORIDE 106 MEQ/L (99-109); GFR ESTIMATE (CALCULATED) > 59 mL/min/; GLUCOSE 91 mg/dL (70-99); POTASSIUM 3.9 MEQ/L (3.7-5.4); SAMPLE HEMOLYSIS CHECK 0; SAMPLE ICTERIC CHECK 0; SAMPLE LIPEMIA CHECK 0; SODIUM 140 MEQ/L (136-147); UREA NITROGEN (BUN) 10 mg/dL (9-23)
[2016-11-24 07:59] VITALS: BP 141/71
[2016-11-24 15:30] VITALS: BP 140/64
[2016-11-25] VITALS: BP 138/63
[2016-11-25 07:44] VITALS: BP 145/79
[2016-11-25 15:43] VITALS: BP 135/69
[2016-11-25] MEDS ORDERED: TRAZODONE HCL50 MG PO (16:22)
[2016-11-25] MEDS ORDERED: OXYCODONE HCL5 MG PO (16:22)
[2016-11-25] MEDS ORDERED: ACIDOPHILUS LA1 EACH PO (16:22)
[2016-11-25] MEDS ORDERED: ZOFRAN4 MG PO (16:22)
[2016-11-25] MEDS ORDERED: MORPHINE SULFAT15 M1 PO (16:22)
[2016-11-25 19:25] VITALS: BP 127/82
[2016-11-26] MEDS ORDERED: FLEET ENEMA-AD118 ML PR (22:11)
[2016-11-26] MEDS ORDERED: DULCOLAX10 MG PR (22:11)
[2016-11-26] MEDS ORDERED: PHILLIPS'400 MG/5 M PO (22:12)
[2016-11-26] MEDS ORDERED: TYLENOL REGULA325 MG PO (22:12)
[2016-11-26] MEDS ORDERED: ZOFRAN4 MG PO (22:13)
== END 2016-11-25 20:22 | DRG 353 ==
LOC: EME → EDBD 20:05 → EME 20:05 → 3EAST 23:30 → 2EAST 23:30 → EDOF 23:30 → 4EAST 23:30 → ENRESERV 11-11 00:09 → 3EAST 11-11 02:38 → ENRESERV 11-11 15:37 → 4EAST 11-11 17:15 → ENRESERV 11-15 15:51 → 2EAST 11-15 17:50 → ENRESERV 11-17 21:22 → 2EAST 11-17 21:23 → ENRESERV 11-17 21:46 → 4EAST 11-17 22:44 → CANRESERV 11-19 10:15 → ENRESERV 11-19 10:15 → 4EAST 11-22 12:28 → ENRESERV 11-22 12:28 → 2EAST 11-22 13:25
PROVIDERS: Emergency Medicine; Family Medicine; Family Medicine Sports Medicine; Internal Medicine Cardiovascular Disease; Physician Assistant Surgical; Surgery
DX: K46.1 Unspecified abdominal hernia with gangrene (principal); K55.029 Acute infarction of small intestine, extent unspecified; K66.1 Hemoperitoneum; K91.870 Postprocedural hematoma of a digestive system organ or structure following a digestive system procedure; D62 Acute posthemorrhagic anemia; I48.92 Unspecified atrial flutter; E87.2 Acidosis; R18.8 Other ascites; J98.11 Atelectasis; Y83.2 Surgical operation with anastomosis, bypass or graft as the cause of abnormal reaction of the patient, or of later complication, without mention of misadventure at the time of the procedure; I48.2 Chronic atrial fibrillation; D72.829 Elevated white blood cell count, unspecified; E78.5 Hyperlipidemia, unspecified; J84.10 Pulmonary fibrosis, unspecified; E86.0 Dehydration; E87.6 Hypokalemia; K21.9 Gastro-esophageal reflux disease without esophagitis; G89.29 Other chronic pain; I11.9 Hypertensive heart disease without heart failure; J98.4 Other disorders of lung; K08.109 Complete loss of teeth, unspecified cause, unspecified class; M54.5 Low back pain; F41.9 Anxiety disorder, unspecified; N28.9 Disorder of kidney and ureter, unspecified; R31.0 Gross hematuria; R10.2 Pelvic and perineal pain; I25.10 Atherosclerotic heart disease of native coronary artery without angina pectoris; Z53.31 Laparoscopic surgical procedure converted to open procedure; Z95.1 Presence of aortocoronary bypass graft; Z90.710 Acquired absence of both cervix and uterus; Z82.49 Family history of ischemic heart disease and other diseases of the circulatory system; Z88.0 Allergy status to penicillin; Z88.5 Allergy status to narcotic agent; Z79.01 Long term (current) use of anticoagulants; Y92.230 Patient room in hospital as the place of occurrence of the external cause
CPT/HCPCS: 36600; 71010; 71250; 74176; 74177; 76770; 80048; 80048 91; 80053; 80074; 81003; 82272; 82803; 82948; 83605; 83690; 84484; 85014; 85018; 85025; 85025 91; 85027; 85610; 85730; 86850; 86860; 86870; 86880; 86900; 86901; 86905; 86920; 87040; 87070; 87086; 87106; 87205; 88307; 93005; 94002; 94799; 97530 GP; 99281; 99285; C9113; J0131; J0330; J1100; J1170; J1650; J1940; J1956; J2270; J2405; J2710; J3010; J3430; J3480; J7030; J7040; J7050; J7120; P9016; P9017; P9045; S0030

== ENCOUNTER 2016-11-26 17:53 | Inpatient (IN) | payer OTHER ==
[~2016-11-26] VITALS: Ht 154.9 cm; Wt 51.9 kg
[~2016-11-26 17:53] MED LIST changes: +ACIDOPHILUS LA1 EACH PO; +MORPHINE SULFAT15 M1 PO; +OXYCODONE HCL5 MG PO; +TRAZODONE HCL50 MG PO; +ZOFRAN4 MG PO
[2016-11-26 19:28] LABS: CHLORIDE 105 mEq/L (99-109); SODIUM 138 mEq/L (136-147)
[2016-11-26 19:30] LABS: GLUCOSE 99 mg/dL (70-99)
[2016-11-26 19:31] LABS: ANION GAP 5 MEQ/L (2-14); HEMATOCRIT 17.7 % (36.0-46.0); MCH 29.6 PG (29.0-34.0); MCHC 31.6 G/DL (30.0-36.0); MCV 93.7 FL (83-99); MEAN PLAT.VOLUME 9.7 uM^3 (9.5-12.4); PLATELET COUNT 224 K/uL (156-360); RBC DIS.WIDTH-CV 16.4 % (11.8-14.6); RBC DIS.WIDTH-SD 54.3 % (39-53); RED BLOOD COUNT 1.89 M/uL (3.80-5.20); WHITE BLOOD COUNT 8.1 K/uL (4.1-10.2)
[2016-11-26 19:32] LABS: TOTAL BILIRUBIN 0.8 mg/dL (0.0-1.0)
[2016-11-26 19:34] LABS: ALKALINE PHOSPHATASE 106 IU/L (3-129); GFR ESTIMATE (CALCULATED) > 59 mL/min/
[2016-11-26 19:35] LABS: UREA NITROGEN (BUN) 14 mg/dL (9-23)
[2016-11-26 21:53] LABS: ADD MIUA? YES; BILIRUBIN NEGATIVE; BLOOD LARGE; COLOR YELLOW ((YELLOW)); GLUCOSE (STRIP) NEGATIVE; KETONES NEGATIVE; LEUKOCYTES TRACE; NITRITE NEGATIVE; PROTEIN (STRIP) 30; SPECIFIC GRAVITY 1.017 (1.000-1.030)
[2016-11-26 22:10] LABS: BACTERIA 1+ /HPF; CASTS NONE SEEN /LPF; CRYSTALS NONE SEEN; EPITHELIAL CELLS 1+ /HPF; MUCUS NONE SEEN /LPF; UCUL ADDED? YES
[2016-11-26] MEDS ORDERED: DULCOLAX10 MG PR (22:11)
[2016-11-26] MEDS ORDERED: FLEET ENEMA-AD118 ML PR (22:11)
[2016-11-26] MEDS ORDERED: PHILLIPS'400 MG/5 M PO (22:12)
[2016-11-26] MEDS ORDERED: TYLENOL REGULA325 MG PO (22:12)
[2016-11-26] MEDS ORDERED: ZOFRAN4 MG PO (22:13)
[2016-11-27] VITALS (9 sets, daily range): BP systolic 37–152; BP diastolic 55–76
[2016-11-27 02:43] LABS: METH RESISTANT S AUREUS PCR NEGATIVE (NEGATIVE)
[2016-11-27 02:44] LABS: PROBE CHECK PASS; SPECIMEN PROCESSING CONTROL PASS
[2016-11-27 02:51] LABS: CHLORIDE 107 mEq/L (99-109); HEMATOCRIT 17.1 % (36.0-46.0); MCHC 31.6 G/DL (30.0-36.0); PLATELET COUNT 191 K/uL (156-360); POTASSIUM 3.8 mEq/L (3.7-5.4); RBC DIS.WIDTH-CV 16.4 % (11.8-14.6); RBC DIS.WIDTH-SD 55.8 % (39-53); SODIUM 140 mEq/L (136-147); WHITE BLOOD COUNT 6.5 K/uL (4.1-10.2)
[2016-11-27 02:52] LABS: GLUCOSE 93 mg/dL (70-99)
[2016-11-27 02:54] LABS: ANION GAP 8 MEQ/L (2-14)
[2016-11-27 02:56] LABS: GFR ESTIMATE (CALCULATED) > 59 mL/min/
[2016-11-27 02:57] LABS: UREA NITROGEN (BUN) 12 mg/dL (9-23)
[2016-11-27 09:35] LABS: HEMATOCRIT 16.8 % (36.0-46.0)
[2016-11-27 20:47] LABS: HEMATOCRIT 22.3 % (36.0-46.0); MCV 91.8 FL (83-99)
[2016-11-28] VITALS (15 sets, daily range): BP systolic 141–194; BP diastolic 67–98
[2016-11-28 01:22] LABS: HEMATOCRIT 21.7 % (36.0-46.0); MCV 89.7 FL (83-99)
[2016-11-28 08:40] LABS: EOSINOPHIL (%) 3.5 % (0-5); EOSINOPHIL COUNT 0.3 K/uL (0-0.3); HEMATOCRIT 31.6 % (36.0-46.0); IMMATURE GRANULOCYTE (%) 1.2 % (0.0-0.7); IMMATURE GRANULOCYTE COUNT 0.1 K/uL; INSTRUMENT ABS NEUTROPHIL CT 7.8 K/uL; LYMPHOCYTE COUNT 0.8 K/uL (1.0-2.8); MCH 30.8 PG (29.0-34.0); MCHC 34.2 G/DL (30.0-36.0); MEAN PLAT.VOLUME 9.8 uM^3 (9.5-12.4); MONOCYTE (%) 6.4 % (3-12); MONOCYTE COUNT 0.6 K/uL (0-0.8); NEUTROPHIL COUNT 7.8 K/uL (1.8-6.4); NRBC (%) 0.2 /100 WBC (0-0); PLATELET COUNT 233 K/uL (156-360); RBC DIS.WIDTH-CV 16.8 % (11.8-14.6); RED BLOOD COUNT 3.51 M/uL (3.80-5.20); WHITE BLOOD COUNT 9.7 K/uL (4.1-10.2)
[2016-11-28 09:00] LABS: ANION GAP 8 MEQ/L (2-14); CHLORIDE 108 MEQ/L (99-109); GFR ESTIMATE (CALCULATED) > 59 mL/min/; GLUCOSE 95 mg/dL (70-99); POTASSIUM 3.9 MEQ/L (3.7-5.4); SAMPLE HEMOLYSIS CHECK 0; SAMPLE ICTERIC CHECK 0; SAMPLE LIPEMIA CHECK 0; SODIUM 141 MEQ/L (136-147); UREA NITROGEN (BUN) 8 mg/dL (9-23)
[2016-11-28 16:25] LABS: POC NON-PRINT COM 1 ND
[2016-11-28 18:22] LABS: HEMATOCRIT 31.6 % (36.0-46.0); MCV 89.8 FL (83-99)
[2016-11-29 01:08] LABS: HEMATOCRIT 31.5 % (36.0-46.0); MCV 89.2 FL (83-99)
[2016-11-29 04:49] VITALS: BP 179/82
[2016-11-29 07:41] VITALS: BP 174/77
[2016-11-29 10:43] LABS: HEMATOCRIT 35.4 % (36.0-46.0); MCV 89.8 FL (83-99)
[2016-11-29 11:00] VITALS: BP 148/70
[2016-11-29 15:00] VITALS: BP 129/83
[2016-11-29 15:45] LABS: HEMATOCRIT 35.1 % (36.0-46.0)
[2016-11-29 19:00] VITALS: BP 144/67
[2016-11-29 23:00] VITALS: BP 135/86
[2016-11-30] VITALS (7 sets, daily range): BP systolic 123–154; BP diastolic 63–82
[2016-11-30 02:50] LABS: HEMATOCRIT 32.1 % (36.0-46.0); MCV 89.2 FL (83-99)
[2016-11-30 05:11] LABS: EOSINOPHIL (%) 2.7 % (0-5); EOSINOPHIL COUNT 0.3 K/uL (0-0.3); HEMATOCRIT 32.5 % (36.0-46.0); IMMATURE GRANULOCYTE (%) 0.7 % (0.0-0.7); IMMATURE GRANULOCYTE COUNT 0.1 K/uL; LYMPHOCYTE COUNT 0.9 K/uL (1.0-2.8); MCH 29.6 PG (29.0-34.0); MCHC 32.9 G/DL (30.0-36.0); MCV 89.8 FL (83-99); MEAN PLAT.VOLUME 9.2 uM^3 (9.5-12.4); MONOCYTE (%) 6.5 % (3-12); MONOCYTE COUNT 0.7 K/uL (0-0.8); NEUTROPHIL (%) 81.9 % (45-76); PLATELET COUNT 275 K/uL (156-360); RED BLOOD COUNT 3.62 M/uL (3.80-5.20); WHITE BLOOD COUNT 10.9 K/uL (4.1-10.2)
[2016-11-30 05:38] LABS: ANION GAP 10 MEQ/L (2-14); CHLORIDE 104 MEQ/L (99-109); GFR ESTIMATE (CALCULATED) > 59 mL/min/; GLUCOSE 90 mg/dL (70-99); SAMPLE HEMOLYSIS CHECK 0; SAMPLE ICTERIC CHECK 0; SAMPLE LIPEMIA CHECK 0; SODIUM 142 MEQ/L (136-147); UREA NITROGEN (BUN) 7 mg/dL (9-23)
[2016-11-30 05:40] LABS: POTASSIUM 2.8 MEQ/L (3.7-5.4)
[2016-11-30 07:49] LABS: HEMATOCRIT 33.2 % (36.0-46.0)
[2016-11-30 15:51] LABS: HEMATOCRIT 34.2 % (36.0-46.0); MCV 91.4 FL (83-99)
[2016-11-30] MEDS ORDERED: LOPRESSOR50 MG PO (17:46)
[2016-11-30] MEDS ORDERED: APRESOLINE50 MG PO (17:46)
[2016-12-01 00:23] LABS: ADD MIUA? YES; BILIRUBIN NEGATIVE; BLOOD LARGE; COLOR YELLOW ((YELLOW)); GLUCOSE (STRIP) NEGATIVE; KETONES NEGATIVE; LEUKOCYTES SMALL; NITRITE NEGATIVE; PROTEIN (STRIP) 100; SPECIFIC GRAVITY 1.008 (1.000-1.030)
[2016-12-01 00:40] LABS: RED BLOOD CELLS 0-5 /HPF (0-5)
[2016-12-01 00:41] LABS: BACTERIA 1+ /HPF; EPITHELIAL CELLS 1+ /HPF; MUCUS RARE /LPF
[2016-12-01 03:00] VITALS: BP 142/66
[2016-12-01 05:21] LABS: EOSINOPHIL (%) 2.6 % (0-5); EOSINOPHIL COUNT 0.3 K/uL (0-0.3); HEMATOCRIT 29.7 % (36.0-46.0); IMMATURE GRANULOCYTE (%) 0.6 % (0.0-0.7); IMMATURE GRANULOCYTE COUNT 0.1 K/uL; INSTRUMENT ABS NEUTROPHIL CT 9.3 K/uL; LYMPHOCYTE COUNT 1.1 K/uL (1.0-2.8); MCH 31.4 PG (29.0-34.0); MCHC 33.7 G/DL (30.0-36.0); MCV 93.4 FL (83-99); MEAN PLAT.VOLUME 9.3 uM^3 (9.5-12.4); MONOCYTE (%) 7.3 % (3-12); MONOCYTE COUNT 0.8 K/uL (0-0.8); NEUTROPHIL (%) 80.1 % (45-76); NEUTROPHIL COUNT 9.3 K/uL (1.8-6.4); PLATELET COUNT 271 K/uL (156-360); RBC DIS.WIDTH-CV 17.7 % (11.8-14.6); RBC DIS.WIDTH-SD 54.9 % (39-53); RED BLOOD COUNT 3.18 M/uL (3.80-5.20); WHITE BLOOD COUNT 11.6 K/uL (4.1-10.2)
[2016-12-01 06:29] LABS: ANION GAP 7 MEQ/L (2-14); CHLORIDE 106 MEQ/L (99-109); GFR ESTIMATE (CALCULATED) > 59 mL/min/; GLUCOSE 93 mg/dL (70-99); SAMPLE HEMOLYSIS CHECK 0; SAMPLE ICTERIC CHECK 0; SAMPLE LIPEMIA CHECK 0; SODIUM 143 MEQ/L (136-147); UREA NITROGEN (BUN) 12 mg/dL (9-23)
[2016-12-01 06:30] LABS: POTASSIUM 3.7 MEQ/L (3.7-5.4)
[2016-12-01 07:00] VITALS: BP 164/72
[2016-12-01] MEDS ORDERED: K-DUR20 MEQ PO (11:31)
[2016-12-01 12:00] VITALS: BP 157/72
[2016-12-01 15:30] VITALS: BP 116/64
== END 2016-12-01 18:07 | DRG 377 ==
LOC: EME 17:53 → EDOF 23:15 → 4EAST 23:15 → ENRESERV 23:16 → 4EAST 11-27 00:47 → ENPENDDIS 12-01 17:00 → 4EAST 12-01 18:07
PROVIDERS: Family Medicine Sports Medicine
PROC: 30233N1 Transfusion of Nonautologous Red Blood Cells into Peripheral Vein, Percutaneous Approach (ICD-10-PCS; 2016-11-27)
PROC: 0DB68ZX Excision of Stomach, Via Natural or Artificial Opening Endoscopic, Diagnostic (ICD-10-PCS; principal; 2016-11-28)
DX: K92.1 Melena (principal); D62 Acute posthemorrhagic anemia; K66.1 Hemoperitoneum; K25.9 Gastric ulcer, unspecified as acute or chronic, without hemorrhage or perforation; E87.6 Hypokalemia; E83.51 Hypocalcemia; R74.0 Nonspecific elevation of levels of transaminase and lactic acid dehydrogenase [LDH]; R74.8 Abnormal levels of other serum enzymes; K76.0 Fatty (change of) liver, not elsewhere classified; R18.8 Other ascites; I48.91 Unspecified atrial fibrillation; G89.29 Other chronic pain; M54.5 Low back pain; F41.9 Anxiety disorder, unspecified; R00.2 Palpitations; R42 Dizziness and giddiness; E78.5 Hyperlipidemia, unspecified; I25.10 Atherosclerotic heart disease of native coronary artery without angina pectoris; I10 Essential (primary) hypertension; K21.9 Gastro-esophageal reflux disease without esophagitis; G43.909 Migraine, unspecified, not intractable, without status migrainosus; F32.9 Major depressive disorder, single episode, unspecified; I25.2 Old myocardial infarction; Z82.49 Family history of ischemic heart disease and other diseases of the circulatory system; Z95.1 Presence of aortocoronary bypass graft
CPT/HCPCS: 74176; 80048; 80053; 81003; 82272; 85014; 85018; 85025; 85027; 86850; 86870; 86900; 86901; 86920; 87086; 87641; 88305; 88342 TC; 99281; 99285; C9113; J2270; J2405; J3010; J7030; J7040; P9016

== ENCOUNTER 2016-12-06 14:03 | Emergency (ER) | payer OTHER ==
[~2016-12-06] VITALS: Ht 154.9 cm; Wt 50.3 kg
[~2016-12-06 14:03] MED LIST changes: +APRESOLINE50 MG PO; +DULCOLAX10 MG PR; +FLEET ENEMA-AD118 ML PR; +K-DUR20 MEQ PO; +PHILLIPS'400 MG/5 M PO; +TYLENOL REGULA325 MG PO
[2016-12-06 15:13] LABS: EOSINOPHIL (%) 5.1 % (0-5); EOSINOPHIL COUNT 0.4 K/uL (0-0.3); HEMATOCRIT 27.3 % (36.0-46.0); IMMATURE GRANULOCYTE (%) 0.6 % (0.0-0.7); IMMATURE GRANULOCYTE COUNT 0.1 K/uL; INSTRUMENT ABS NEUTROPHIL CT 5.6 K/uL; LYMPHOCYTE COUNT 1.1 K/uL (1.0-2.8); MCH 29.9 PG (29.0-34.0); MCHC 31.9 G/DL (30.0-36.0); MCV 93.8 FL (83-99); MEAN PLAT.VOLUME 9.5 uM^3 (9.5-12.4); MONOCYTE (%) 8.1 % (3-12); MONOCYTE COUNT 0.6 K/uL (0-0.8); NEUTROPHIL (%) 71.9 % (45-76); NEUTROPHIL COUNT 5.6 K/uL (1.8-6.4); PLATELET COUNT 298 K/uL (156-360); RBC DIS.WIDTH-SD 57.5 % (39-53); RED BLOOD COUNT 2.91 M/uL (3.80-5.20); WHITE BLOOD COUNT 7.8 K/uL (4.1-10.2)
[2016-12-06 15:19] LABS: INTER. NORMALIZED RATIO 1.1
[2016-12-06 15:22] LABS: PTT 30.7 SEC (25-37)
[2016-12-06 15:24] LABS: CHLORIDE 104 mEq/L (99-109); POTASSIUM 3.9 mEq/L (3.7-5.4); SODIUM 139 mEq/L (136-147)
[2016-12-06 15:26] LABS: GLUCOSE 107 mg/dL (70-99)
[2016-12-06 15:27] LABS: ANION GAP 10 MEQ/L (2-14)
[2016-12-06 15:28] LABS: TOTAL BILIRUBIN 0.5 mg/dL (0.0-1.0)
[2016-12-06 15:29] LABS: ALKALINE PHOSPHATASE 100 IU/L (3-129)
[2016-12-06 15:30] LABS: GFR ESTIMATE (CALCULATED) > 59 mL/min/
[2016-12-06 15:31] LABS: UREA NITROGEN (BUN) 12 mg/dL (9-23)
[2016-12-06 16:29] LABS: ADD MIUA? YES; BILIRUBIN NEGATIVE; BLOOD LARGE; COLOR RED ((YELLOW)); GLUCOSE (STRIP) NEGATIVE; KETONES NEGATIVE; LEUKOCYTES TRACE; NITRITE NEGATIVE; PH, URINE 6.5 (5-8); PROTEIN (STRIP) 100; SPECIFIC GRAVITY 1.025 (1.000-1.030); UROBILINOGEN 0.2 MG/DL (0.2-1.0)
[2016-12-06 16:34] LABS: RED BLOOD CELLS TNTC /HPF (0-5)
[2016-12-06 16:35] LABS: BACTERIA 3+ /HPF; EPITHELIAL CELLS NONE SEEN /HPF; MUCUS NONE SEEN /LPF; OTHER BUDDING YEAST; UCUL ADDED? YES
[2016-12-06 20:00] VITALS: BP 137/84
== END 2016-12-06 21:34 ==
LOC: EME 14:03
PROVIDERS: Emergency Medicine
DX: K62.5 Hemorrhage of anus and rectum (principal); D64.9 Anemia, unspecified; R10.84 Generalized abdominal pain; Z98.890 Other specified postprocedural states; Z90.49 Acquired absence of other specified parts of digestive tract; N94.89 Other specified conditions associated with female genital organs and menstrual cycle; R32 Unspecified urinary incontinence; I10 Essential (primary) hypertension; E78.5 Hyperlipidemia, unspecified; Z90.710 Acquired absence of both cervix and uterus; Z95.1 Presence of aortocoronary bypass graft; I70.0 Atherosclerosis of aorta
CPT/HCPCS: 74174; 80053; 81003; 85025 91; 85610; 85730; 86850; 86870; 86900; 86901; 87086; 99281; 99285; J2270; J7040

== ENCOUNTER 2017-02-19 16:58 | Emergency (ER) | payer OTHER ==
[~2017-02-19] VITALS: Ht 154.9 cm; Wt 44.0 kg
[~2017-02-19 16:58] MED LIST changes: +BENADRYL25 MG PO; +DESYREL100 MG PO; +LOPRESSOR100 M1 PO; +MORPHABOND ER15 MG PO
[2017-02-19 17:26] LABS: HEMATOCRIT 36.5 % (36.0-46.0); MCH 29.9 PG (29.0-34.0); MCHC 31.5 G/DL (30.0-36.0); MCV 94.8 FL (83-99); MEAN PLAT.VOLUME 10.4 uM^3 (9.5-12.4); PLATELET COUNT 234 K/uL (156-360); RBC DIS.WIDTH-CV 16.4 % (11.8-14.6); RBC DIS.WIDTH-SD 57.8 % (39-53); RED BLOOD COUNT 3.85 M/uL (3.80-5.20); WHITE BLOOD COUNT 11.2 K/uL (4.1-10.2)
[2017-02-19 17:35] LABS: CHLORIDE 102 mEq/L (99-109); POTASSIUM 3.2 mEq/L (3.7-5.4); SODIUM 142 mEq/L (136-147)
[2017-02-19 17:37] LABS: GLUCOSE 119 mg/dL (70-99)
[2017-02-19 17:38] LABS: ANION GAP 10 MEQ/L (2-14)
[2017-02-19 17:41] LABS: GFR ESTIMATE (CALCULATED) > 59 mL/min/; UREA NITROGEN (BUN) 21 mg/dL (9-23)
[2017-02-19 17:49] LABS: TROP-I INTERPRETATION NEGATIVE; TROPONIN-I < 0.01 ng/mL (0.0-0.30)
[2017-02-19 20:14] LABS: TROP-I INTERPRETATION NEGATIVE; TROPONIN-I < 0.01 ng/mL (0.0-0.30)
[2017-02-19] MEDS ORDERED: PROVENTIL HFA6.7 GM IH (20:43)
[2017-02-19] MEDS ORDERED: ZITHROMAX Z-PA250 MG PO (20:43)
[2017-02-19 21:12] VITALS: BP 127/72
== END 2017-02-19 21:13 | disposition home or self-care (01) ==
LOC: EME 16:58
PROVIDERS: Emergency Medicine
DX: J18.9 Pneumonia, unspecified organism (principal); R51 Headache; R11.0 Nausea; Z95.1 Presence of aortocoronary bypass graft; I25.2 Old myocardial infarction; I25.10 Atherosclerotic heart disease of native coronary artery without angina pectoris; I10 Essential (primary) hypertension; E78.5 Hyperlipidemia, unspecified
CPT/HCPCS: 71020; 80048; 84484; 85027; 93005; 94640; 99281; 99285